=== PATIENT | female | born 1970 | race Caucasian/White ===

== ENCOUNTER 2017-01-05 12:20 | Emergency (ER) | payer MEDICAID ==
[~2017-01-05] VITALS: Ht 157.5 cm; Wt 78.0 kg
[2017-01-05 12:26] VITALS: Ht 157.5 cm; Wt 78.0 kg
[2017-01-05] MEDS ORDERED: HC30CR25 TOP (14:43)
[2017-01-05] MEDS ORDERED: CEPH-443 PO (14:43)
[2017-01-05] MEDS ORDERED: MED4DP PO (14:43)
--- NOTE | 2017-01-05 15:06 | ERD ---
ER Documentation Chief Complaint Date/Time DATE: 01/05/17 TIME: 15:02 Chief Complaint RASH X 1 WEEK HPI 26-year-old female complaining of rash 2 weeks. Patient states she is taking Benadryl with no alleviation of symptoms. Rash is only on arms and face. Rash is very itchy. No one at home has similar rash. Patient has never had a rash like this before. Denies fevers. Denies known contacts. Works at [employer] and that he causes rash to worsen. Denies vomiting or abdominal pain. No sick contacts. ROS All systems reviewed and are negative except as per history of present illness. Medications Home Meds Active Scripts Cephalexin* (Keflex*) 500 Mg Capsule, 500 MG PO QID for 7 Days, CAP Prov:SCOOBY OROURKE PA-C 01/05/17 Hydrocortisone* Topical (Hydrocortisone* Topical) 2.5%-28.3 Gm Cream..g., 1 APPLIC TOP BID, #1 TUB Prov:SCOOBY OROURKE PA-C 01/05/17 Methylprednisolone* (Medrol* DOSE PACK) 4 Mg/Dose-Pack Tab.ds.pk, 4 MG PO . DIRECTED, #1 PACKET Prov:SCOOBY OROURKE PA-C 01/05/17 Allergies Allergies: Coded Allergies: No Known Allergy (Unverified , 01/05/17) PMhx/Soc Medical and Surgical Hx: pt denies Medical Hx, pt denies Surgical Hx History of Surgery: No Anesthesia Reaction: No Hx Neurological Disorder: No Hx Respiratory Disorders: No Hx Cardiac Disorders: No Hx Psychiatric Problems: No Hx Miscellaneous Medical Probl: No Hx Alcohol Use: No Hx Substance Use: No Hx Tobacco Use: No Smoking Status: Never smoker Physical Exam Vitals Vital Signs Date Time Temp Pulse Resp B/P Pulse Ox O2 Delivery O2 Flow Rate FiO2 01/05/17 12:26 98.1 100 18 123/69 99 Physical Exam Const: [] Head: Atraumatic Eyes: Normal Conjunctiva ENT: Normal External Ears, Nose and Mouth. Rash noted on face. Injected sclera. Neck: Full range of motion..~ No meningismus. Resp: Clear to auscultation bilaterally Cardio: Regular rate and rhythm, no murmurs Skin: Erythematous macules noted to bilateral arms and face. Honeycomb crusting around lips. No vesicles or purulence. no Linear burrowing. Procedures/MDM MDM: Low suspicion for life-threatening rash. Low suspicion for Parasitic rash. Rash appears to be contact dermatitis however there are changes indicating impetigo around the mouth. Patient's rash is only on areas that are not covered with clothes. Recommend patient to evaluate her environment to determine if there is a precipitating cause. Patient is told to use medication as prescribed. I have low suspicion for fungal or viral infection. Patient is discharged with medications and recommended to follow-up with primary care within 1-2 days for close evaluation. Patient is told if symptoms change or worsen to return the ER. Departure Diagnosis: Primary Impression: Impetigo Additional Impression: Allergic conjunctivitis Condition: Stable Patient Instructions: Dermatitis, Non-Specific Referrals: [facility] YOU HAVE RECEIVED A MEDICAL SCREENING EXAM AND THE RESULTS INDICATE THAT YOU DO NOT HAVE A CONDITION THAT REQUIRES URGENT TREATMENT IN THE EMERGENCY DEPARTMENT. FURTHER EVALUATION AND TREATMENT OF YOUR CONDITION CAN WAIT UNTIL YOU ARE SEEN IN YOUR DOCTORS OFFICE WITHIN THE NEXT 1-2 DAYS. IT IS YOUR RESPONSIBILITY TO MAKE AN APPOINTMENT FOR [facility]. IF YOU HAVE A PRIMARY DOCTOR --you should call your primary doctor and schedule an appointment IF YOU DO NOT HAVE A PRIMARY DOCTOR YOU CAN CALL OUR PHYSICIAN REFERRAL HOTLINE AT IF YOU CAN NOT AFFORD TO SEE A PHYSICIAN YOU CAN CHOSE FROM THE FOLLOWING [facility] [address] [facility] [address] [facility] [facility] [address] [facility] [address] [facility] [address] [facility] [address] Additional Instructions: FOLLOW UP WITH YOUR PRIMARY CARE PHYSICIAN TOMORROW.Return to this facility if you are not improving as expected. SCOOBY OROURKE PA-C Jan 05, 2017 15:06
== END 2017-01-05 16:46 | disposition home or self-care (01) ==
LOC: FTE 12:20
DX: L01.00 Impetigo, unspecified (principal); H10.45 Other chronic allergic conjunctivitis
CPT/HCPCS: 99284